=== PATIENT | male | born 1990 | race Caucasian/White ===

== ENCOUNTER → 2023-06-22 | Outpatient (CLI) | payer OTHER ==
[~2023-06-22] MED LIST: CYCL10 PO; DIAZ5 PO; DICL75ER PO; NAPR500 PO; Naproxen500 MG PO; Percocet 5-3251 EACH PO; RXHYD5325 PO
[2023-06-22 12:22] LABS: Body Fluid Crystals NEG (NEGATIVE)
[2023-06-22 13:09] LABS: WBC Count, Synovial Fluid 11540 /mm3 (0-180)
[2023-06-22 13:20] LABS: RBC Count, Synovial Fluid 67 /mm3 (0-0)
[2023-06-22 13:27] LABS: Lymphs, Synovial Fluid 12 % (0-15); Monocytes/Macrophages, Synovia 26 % (0-65); Neutrophils, Synovial Fluid 62 % (0-24)
[2023-06-22 13:29] LABS: Appearance, Synovial Fluid Cloudy (Clear); Color, Synovial Fluid Yellow (None-P Yel)
[2023-06-22 18:23] LABS: Uric Acid, Blood 7.6 mg/dL (3.5-7.2)
[2023-06-22 18:51] LABS: Albumin, Blood 4.1 g/dL (3.4-5.0); Albumin/Globulin Ratio 1.1 (0.8-1.8); Calcium, Blood 9.1 mg/dL (8.5-10.1); Creatinine, Blood 0.9 mg/dL (0.60-1.20); Globulin, Blood 3.6 g/dL (2.2-4.0); Total Protein, Blood 7.7 g/dL (6.4-8.2)
== END | disposition home or self-care (01) ==
LOC: LAB 10:40 → LAB SHORT 10:40
PROVIDERS: Family Medicine
DX: M25.469 Effusion, unspecified knee (principal)
CPT/HCPCS: 80053; 84550; 87070; 87075; 87205; 89051; 89060

== ENCOUNTER → 2024-04-13 | Outpatient (CLI) | payer OTHER ==
[2024-04-13 12:12] LABS: Albumin/Globulin Ratio 1.1 (0.8-1.8); Bilirubin, Total 0.7 mg/dL (0.1-1.0); Bun/Creatinine Ratio 17.6 (12.0-20.0); Calcium, Blood 8.9 mg/dL (8.5-10.1); Creatinine, Blood 0.91 mg/dL (0.60-1.20); Globulin, Blood 3.6 g/dL (2.2-4.0); Potassium, Blood 4.3 mmol/L (3.5-5.5); Total Protein, Blood 7.6 g/dL (6.4-8.2); Uric Acid, Blood 7.1 mg/dL (3.5-7.2)
== END | disposition home or self-care (01) ==
LOC: LAB 11:05 → LAB SHORT 11:05
PROVIDERS: Physician Assistant
DX: I10 Essential (primary) hypertension (principal); M10.062 Idiopathic gout, left knee
CPT/HCPCS: 36415; 80053; 84550

== ENCOUNTER 2024-05-29 07:30 | Day surgery (SDC) | payer OTHER ==
[~2024-05-29] VITALS: Ht 185.4 cm; Wt 105.0 kg
[2024-05-29] MEDS ORDERED: propofoL 50 ML IV ONE (07:34)
[2024-05-29] MEDS ORDERED: Lactated Ringer's 1,000 ML IV ONE ×2 (07:34→08:24)
--- NOTE | 2024-05-29 08:22 | NUR ---
05/29/24 0822 Rubi Rao CHARTING UNDER RUBI BECAUSE SIGN ON IS NOT WORKING
[2024-05-29] MEDS ORDERED: Midazolam HCL 1 MG/ML 5MLVIAL ONE (08:47)
[2024-05-29 09:22] VITALS: BP 120/77
== END 2024-05-29 09:36 | disposition home or self-care (01) ==
LOC: ORSCSDS 07:30
PROVIDERS: Internal Medicine Gastroenterology
PROC: 0DB58ZX Excision of Esophagus, Via Natural or Artificial Opening Endoscopic, Diagnostic (ICD-10-PCS; principal; 2024-05-29 08:45)
DX: R13.10 Dysphagia, unspecified (principal); K20.80 Other esophagitis without bleeding; I10 Essential (primary) hypertension; Z79.899 Other long term (current) drug therapy
CPT/HCPCS: 88305; 88312; J2250; J2704; J7120